=== PATIENT | male | born 1950 | race Caucasian/White ===

== ENCOUNTER 2023-12-11 08:38 | Outpatient (CLI) | payer MEDICARE, OTHER, SELFPAY | END 2023-12-11 08:39 | disposition home or self-care (01) | PROVIDERS: PCP Family Medicine; Visit Provider Family Medicine | DX: R63.4 Abnormal weight loss (principal); E78.2 Mixed hyperlipidemia | CPT/HCPCS: 80053; 80061; 84443 ==

== ENCOUNTER 2024-10-14 08:47 | Inpatient (IN) | payer MEDICARE, OTHER, SELFPAY ==
[2024-10-14] VITALS (13 sets, daily range): BP systolic 112–145; BP diastolic 62–87; PULSE 95–111; RESP 24–48; TEMP 36.1–37.3; O2SAT 68–92; BMI 17.4
--- OUTSIDE RECORDS SUMMARY | 2024-10-14 08:49 | XMS_ITS | Clinical Summary ---
Author Organization [facility] Address [place], [place] [address] Care Team Providers Care Health Records Technology Teacher Name Role Phone Pcp, No Primary Care Provider Unavailabl e Allergies No known active allergies Medications colestipol (COLESTID) 1 gram tabletIndicatio ns:Diarrhea, unspecified type Take 1 tablet by mouth once daily. 30 tablet 06/24/2017 10:57 AM CDT 7 Active oxyCODONE-aceta minophen, 5-325 mg, (PERCOCET) 5-325 mg per tabletIndicatio ns:Choledocholi thiasis Take 1-2 tablets by mouth every 6 hours if needed for Pain Max acetaminophen dose: 4000mg in 24 hrs. 10 tablet 06/24/2017 12:25 PM CDT 7 Active Active Problems Problem Noted Date Diagnosed Date RUQ abdominal pain 06/23/2017 S/P cholecystectomy 06/23/2017 Elevated liver function tests 06/23/2017 Suspected Choledocholithiasis 06/23/2017 Family History Medical History Relation Name Comments Heart failure Father Stroke Father Heart Disease Mother Relation Name Status Comments Father Mother Social History Tobacco Use Types Packs/Day Years Used Date Smoking Tobacco: Every Day Cigarettes Smokeless Tobacco: Never Tobacco Cessation:Ready to Q uit: No Alcohol Use Standard Drinks/Week Comments No 0 (1 standard drink = 0.6 oz pur e alcohol) Sex and Gender Information Value Date Recorded Sex Assigned at Not on file Legal Sex Male 6:51 PM [employer]ENS[employer] Gender Identity Not on file Sexual Orientation Not on file Obstetrics History Last Filed Vital Signs Vital Sign Reading Time Taken Comments Blood Pressure 139/70 06/24/2017 8:00 AM CDT Pulse 75 06/24/2017 8:00 AM CDT Temperature 37 C (98.6 F) 06/24/2017 8:00 AM CDT Respiratory Rate 16 06/24/2017 8:00 AM CDT Oxygen Saturation 95% 06/24/2017 8:00 AM CDT Inhaled Oxygen Concentration - - Weight - - Height - - Body Mass Index - - Plan of Treatment Not on file Insurance MEDICARE PART A HB ONLY Member Subscriber Plan / Payer (Ef fective 2016-Present) Name:Young Mcleod Member ID:[id number] Relation to Subscriber:Self Name:Young Mcleod Shira Subscriber ID:[id number] Payer ID:Not on file Group ID:Not on file Type:Not on file Address: ATTN: CLAIMS [address] MEDICARE [place] ONLY MEDICARE PART B [place] ONLY Member Subscriber Plan / Payer (Ef fective 2016-Present) Name:Young Mcleod Member ID:[id number] Relation to Subscriber:Self Name:Young Mcleod Shira Subscriber ID:[id number] Payer ID:Not on file Group ID:Not on file Type:Not on file Address: ATTN: CLAIMS [address] Advance Directives * Full Code (Latest Code Status on File) Date Activated Date Inactivated Comments 06/23/2017 3:45 AM 06/24/2017 4:04 PM Question Answer Comments Code Status Discussion: Discussed Care Teams Health Records Technology Teacher Relationship Specialty Start Date End Date Pcp, No . PCP - General 06/23/17
--- OUTSIDE RECORDS SUMMARY | 2024-10-14 08:49 | XMS_ITS | Continuity of Care Document ---
Author Name [email or web address] Address Unknown Organization Unknown Address Unknown Procedures FILTER APPLIED:Only known Procedures with Onset Date within the last 5 years Procedure Date Procedure Provider Additional Inform ation Status COMPREHEN METABOLIC PANEL (57216) Completed ASSAY THYROID STIM HORMONE (63107) Completed LIPID PANEL (72202) Comp leted Encounters FILTER APPLIED:Only known Encounters with Admission Date within the last 5 years Encounter Location Admission Discharge Billing Code [facility] Tapan Moran
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
--- NOTE | 2024-10-14 09:34 | CRLHL7_ITS ---
For Patients: As a result of the Century Cures Act, medical imaging exams and procedure reports are released immediately into your electronic medical record. You may view this report before your referring provider. If you have questions, please contact your health care provider. INDICATION: Weight loss. COPD. SOB. Rule out pulmonary embolism. TECHNIQUE: Volumetric helical scanning of the thorax was performed during infusion of 95 cc of Isovue 370 contrast material IV, timing optimized for pulmonary arterial opacification. Coronal and sagittal reconstructions were obtained. COMPARISON: None FINDINGS: The images are of acceptable quality and demonstrate uniform vascular enhancement within the pulmonary arteries. No pulmonary arterial filling defect is identified. The heart size is normal. Calcified coronary arterial plaque is demonstrated. Panlobular emphysema is demonstrated. Infiltrates are demonstrated in the left lower lobe and right middle lobe. Scattered nodules and tree-in-bud opacities are demonstrated. Mild bronchial wall thickening is noted along with inspissated mucus in a number of lung base bronchi. A small left pleural effusion is noted. There is no mediastinal or hilar adenopathy. Images of the upper abdomen demonstrate postop changes of cholecystectomy. IMPRESSION: 1. Negative for pulmonary embolism. 2. Panlobular emphysema, infiltrates in the left lower lobe and right middle lobe, scattered tiny nodules and tree-in-bud opacities. 3. Mild bronchial wall thickening as well as inspissated mucus in a number of lung bases bronchi. 4. Small left pleural effusion. Please note that all CT scans at this facility use dose modulation, iterative reconstruction, and/or weight-based dosing when appropriate to reduce radiation dose to as low as reasonably achievable. Dictated by Servando Garcia MD @ 10/14/2024 11:28:26 AM (Electronically Signed)
[2024-10-14 09:45] LABS: PCR FLU A POSITIVE PCR FLU A (Negative); PCR FLU B Negative PCR FLU B (Negative); PCR RSV Negative PCR RSV (Negative); SARS PCR* Negative SARS-CoV-2 (Negative)
[2024-10-14 09:49] LABS: HCO3 VBG 44 mmol/L (21-28); PO2 VBG 35.5 mmHG (25-47); pH VBG 7.341 (7.32-7.43)
[2024-10-14] MEDS: 0.9 % SODIUM CHLORIDE 500 ML 500 ML IV (09:49)
[2024-10-14 09:52] LABS: PCO2 VBG 81 mmHG (40-50)
[2024-10-14 09:53] LABS: Basophils Absolute Auto 0.01 K/uL (0.00-0.30); Basophils Percent Auto 0.1 % (0.0-3.0); Eosinophils Absolute Auto 0.01 K/uL (0.00-0.50); Eosinophils Percent Auto 0.1 % (0.0-7.0); Hematocrit 46.2 % (37.0-53.0); Immature Granulocytes Abs Auto 0.06 K/uL (0.00-0.30); Immature Granulocytes Pct Auto 0.7 %; Lymphocytes Percent Auto 3.3 % (20-44); Mean Corpuscular HGB Conc 30 gm/dL (32-36); Mean Corpuscular Hemoglobin 28 pg (26-34); Mean Corpuscular Volume 92 fL (80-100); Monocytes Percent Auto 8.6 % (0.0-11.0); Neutrophils Percent Auto 87.2 % (42.0-72.0); Platelet Count* 316 K/uL (140-440); RDW Coefficient of Variation % 13.1 % (11.5-15.5); Red Blood Count 5.03 m/uL (4.30-5.90); White Blood Count* 8.92 K/uL (4.50-11.00)
[2024-10-14 09:56] LABS: Slide Review Reflex No
[2024-10-14 10:10] LABS: Albumin* 3.4 g/dL (3.3-5.0); Chloride* 86 mmol/L (96-114)
[2024-10-14 10:11] LABS: Potassium* 4.6 mmol/L (3.6-5.1); Sodium* 132 mmol/L (135-149)
[2024-10-14 10:13] LABS: Creatinine* 0.6 mg/dL (0.5-1.5); Est. Creatinine Clearance* 47.55; Estimated Glomerular Filt Rate 103 ml/min
[2024-10-14 10:14] LABS: Alanine Aminotransferase* 25 U/L (4-50); Alkaline Phosphatase* 71 U/L (40-150); Aspartate Amino Transferase* 22 U/L (12-35); Bilirubin Direct* 0.3 mg/dL (0.0-0.5); Bilirubin Total* 0.4 mg/dL (0.1-1.5); Blood Urea Nitrogen* 14 mg/dL (7-30); Calcium* 8.5 mg/dL (8.4-10.6); Glucose* 103 mg/dL (60-115); Total Protein* 6.7 g/dL (6.0-8.3)
[2024-10-14 10:16] LABS: INR 1.03 (0.91-1.10); Prothrombin Time 14.2 Seconds
[2024-10-14 10:17] LABS: Partial Thromboplastin Time* 31 Seconds (23-33)
[2024-10-14 10:22] LABS: Anion Gap 5 mEq/L (7-15); Carbon Dioxide* 41 mmol/L (20-32)
[2024-10-14 11:34] LABS: NT Pro B Type NatriureticPept* 3700 pg/mL
[2024-10-14] MEDS: OSELTAMIVIR PHOSPHATE 75 MG CAPSULE PO ×2 (14:48→21:01)
[2024-10-14] MEDS: cefTRIAXone 1 GM in 0.9 % SODIUM CHLORIDE Mini-bag 100 ML IVPB (14:48)
[2024-10-14] MEDS: AZITHROMYCIN 250 MG TABLET 500 MG PO (14:49)
[2024-10-14] MEDS: predniSONE 10 MG TABLET 50 MG PO (14:49)
[2024-10-14 15:54] LABS: HCO3 VBG 41 mmol/L (21-28); PO2 VBG 59.4 mmHG (25-47); pH VBG 7.318 (7.32-7.43)
[2024-10-14 16:16] LABS: PCO2 VBG 79 mmHG (40-50)
[2024-10-14] MEDS: IPRAT-ALBUT 0.5-2.5 MG/3 ML NEB 1 NEB IH ×2 (17:36→21:01)
--- NOTE | 2024-10-14 17:53 | P.IMHP_ITS ---
Hospitalist- H&P: HPI History of Present Illness Date Seen: 10/14/24 Chief complaint: Low O2 sats - from clinic Narrative: Young Mcleod is a 73 year old male with COPD admitted to the hospital with 5 day history of illness. Patient is a poor historian but his gives details of recent illness. About 5 days ago he began having worsening shortness of breath and cough. His breathing has been getting worse and he has now been confused and it is sometimes quite agitated. He has been sleeping in a recliner because he can not lie supine. He tolerates no activities due to dyspnea. He is known to have COPD from smoking. Stop smoking recently but acknowledges occasionally taking cigarettes from his to smoke. Previously was smoking marijuana but no longer. He uses DuoNebs 4 times a day and p.r.n. albuterol rescue inhaler. He no longer has maintenance therapy for his COPD. His had influenza a couple weeks ago. She got it from there [employer]. Review of Systems Narrative: Patient reports he is otherwise feeling well except for his respiratory symptoms. His notes that his appetite has been poor in the last few days as well. [facility] Medical History (Updated 10/14/24 @ 18:06 by Servando Hdez MD) Pneumonia ?J18.9 - Pneumonia, unspecified organism (ICD-10) Acute on chronic respiratory failure with hypoxia and hypercapnia ?J96.21 - Acute and chronic respiratory failure with hypoxia (ICD-10) ?J96.22 - Acute and chronic respiratory failure with hypercapnia (ICD-10) Tobacco use ?Z72.0 - Tobacco use (ICD-10) Hyperlipidemia ?E78.5 - Hyperlipidemia, unspecified (ICD-10) Anxiety ?F41.9 - Anxiety disorder, unspecified (ICD-10) Abnormal weight loss ?R63.4 - Abnormal weight loss (ICD-10) COPD (chronic obstructive pulmonary disease) ?J44.9 - Chronic obstructive pulmonary disease, unspecified (ICD-10) Surgical History History of laparoscopic cholecystectomy ?Z90.49 - Acquired absence of other specified parts of digestive tract (ICD- 10) Social History (Updated 10/14/24 @ 18:00 by Servando Hdez MD) Narrative: He lives with his , Cassandra, she is healthcare power of commonwealth attorney. Code status is DNR DNI. Recently stop smoking tobacco and marijuana though reports occasionally taking his cigarettes to smoke. Does not drink alcohol. What is your current living situation?: I presently have a place to live Problems where you live: no known problems Problems where you live details: none In the past 12 months, utilities in danger of being shut off: no In past 12 months, lack of transportation kept you from medical appts, meetings, work, or getting things needed for daily living: no In the past 12 mos, have been you worried that your food would run out before you had money to buy more?: never true In the past 12 mos, the food you bought just didn't last and you didn't have money to buy more?: never true Smoking Status: Former smoker Non-prescribed substance use: denies use How often does anyone, including family, friends and others, physically hurt you : never How often does anyone, including family, friends and others, insult or talk down to you: never How often does anyone, including family, friends and others, threaten you with harm: never How often does anyone, including family, friends and others, scream or curse at you: never service: No Meds Home Medications and Allergies Allergies Allergy/AdvReac Type Severity Reaction Status Date / Time No Known Drug Allergies Allergy Unverified 10/14/24 10:51 Exam Narrative: Exam Narrative: He is alert and appears in moderate respiratory distress with increased rate and work of breathing. His responses to questions is relatively slow suggesting some mental slowing. No obvious confusion or disorientation is present. Head is without trauma. Oropharynx with dry mucous membranes. Neck is supple without mass or adenopathy. Respirations with marked decreased breath sounds. Prolonged expiration with an I to E ratio of 1-3. Cardiovascular: S1, S2, regular tachycardia. Abdomen is soft without tenderness or mass. Extremities without edema. Extremities are cool to touch. Const: Vital Signs, click to edit/add: Vital Signs - 24 hr 10/14/24 09:04 10/14/24 13:12 10/14/24 13:12 Temperature 98.7 F 98.8 F Pulse Rate [Left P ulse Oximeter] 103 H Pulse Rate [Pulse Oximeter] 111 H Respiratory Rate 48 H 40 H 40 H Blood Pressure [Ri ght Arm] 129/76 Blood Pressure [Ri ght Upper Arm] 145/81 H Pulse Oximetry 68 L 87 L 87 L Oxygen Delivery Me thod Room Air Nasal Cannula Nasal Cannula Oxygen Flow Rate 2.5 2.5 Fraction of Inspir ed Oxygen 10/14/24 13:30 10/14/24 14:00 10/14/24 14:34 Temperature Pulse Rate [Left P ulse Oximeter] Pulse Rate [Pulse Oximeter] Respiratory Rate Blood Pressure [Ri ght Arm] Blood Pressure [Ri ght Upper Arm] Pulse Oximetry 83 L 92 88 Oxygen Delivery Me thod Nasal Cannula Oxygen Flow Rate 2 4 Fraction of Inspir ed Oxygen 10/14/24 14:36 10/14/24 14:56 10/14/24 14:56 Temperature Pulse Rate [Left P ulse Oximeter] Pulse Rate [Pulse Oximeter] Respiratory Rate 26 H Blood Pressure [Ri ght Arm] Blood Pressure [Ri ght Upper Arm] Pulse Oximetry 88 83 L 85 L Oxygen Delivery Me thod Nasal Cannula Nasal Cannula Nasal Cannula Oxygen Flow Rate 2 2 3 Fraction of Inspir ed Oxygen 10/14/24 15:00 10/14/24 17:25 Temperature 97 F L Pulse Rate [Left P ulse Oximeter] 106 H Pulse Rate [Pulse Oximeter] Respiratory Rate 26 H Blood Pressure [Ri ght Arm] 117/87 Blood Pressure [Ri ght Upper Arm] Pulse Oximetry 86 L Oxygen Delivery Me thod Nasal Cannula Oxygen Flow Rate 3 25 Fraction of Inspir ed Oxygen 35 Documenting provider has reviewed patient's vital signs: yes Hospitalist - H&P: Result Labs Labs: Short CBC 10/14/24 Range/Units 09:33 WBC 8.92 (4.50-11.00) K/uL Hgb 14.0 (13.5-17.5) gm/dL Hct 46.2 (37.0-53.0) % Plt Count 316 (140-440) K/uL BMP 10/14/24 09:33 Sodium 132 L Potassium 4.6 Chloride 86 L Carbon Dioxide 41 H* BUN 14 Creatinine 0.6 Glucose 103 Calcium 8.5 Liver Function 10/14/24 Range/Units 09:33 Total Bilirubin 0.4 (0.1-1.5) mg/dL Direct Bilirubin 0.3 (0.0-0.5) mg/dL AST 22 (12-35) U/L ALT 25 (4-50) U/L Alkaline Phosphatase 71 (40-150) U/L Albumin 3.4 (3.3-5.0) g/dL Imaging CT scan - chest: Radiologist's impression: INDICATION: Weight loss. COPD. SOB. Rule out pulmonary embolism. TECHNIQUE: Volumetric helical scanning of the thorax was performed during infusion of 95 cc of Isovue 370 contrast material IV, timing optimized for pulmonary arterial opacification. Coronal and sagittal reconstructions were obtained. COMPARISON: None FINDINGS: The images are of acceptable quality and demonstrate uniform vascular enhancement within the pulmonary arteries. No pulmonary arterial filling defect is identified. The heart size is normal. Calcified coronary arterial plaque is demonstrated. Panlobular emphysema is demonstrated. Infiltrates are demonstrated in the left lower lobe and right middle lobe. Scattered nodules and tree-in-bud opacities are demonstrated. Mild bronchial wall thickening is noted along with inspissated mucus in a number of lung base bronchi. A small left pleural effusion is noted. There is no mediastinal or hilar adenopathy. Images of the upper abdomen demonstrate postop changes of cholecystectomy. IMPRESSION: 1. Negative for pulmonary embolism. 2. Panlobular emphysema, infiltrates in the left lower lobe and right middle lobe, scattered tiny nodules and tree-in-bud opacities. 3. Mild bronchial wall thickening as well as inspissated mucus in a number of lung bases bronchi. Assessment and Plan Assessment and plan (1) Acute on chronic respiratory failure with hypoxia and hypercapnia: Problem comment: Due to COPD exacerbation plus influenza. Systemic steroids, inhaled bronchodilators, antibiotics. Cautious use of oxygen due to CO2 retention. May need BiPAP Status: Acute (2) Influenza A: Problem comment: Tamiflu and monitor Status: Acute (3) Pneumonia: Problem comment: Tamiflu and also treatment for community-acquired pneumonia. Status: Acute (4) Abnormal weight loss: Problem comment: Patient has a BMI of 17.4 with a 4.5 kg weight loss in 10 months from 12/11/2023 to 10/14/2024. Nutritional consult. Optimize COPD treatment Status: Acute Plan 73-year-old male admitted to the hospital with hypercarbic and hypoxic respiratory failure due to COPD exacerbation and influenza. Also possible community-acquired pneumonia. Plan discussed with patient and his . Outlined above. Total time spent today is 75 minutes in reviewing past medical history, discussing with other providers and patient and ongoing management of respiratory failure.
[2024-10-14] MEDS: ENOXAPARIN 40 MG/0.4 ML INJ SUBCUT (21:01)
[2024-10-14] MEDS: ACETAMINOPHEN 325 MG TABLET 650 MG PO (21:02)
[2024-10-14] MEDS: SODIUM CHLORIDE 0.9 % (FLUSH) 10 ML SYRINGE 5 ML IVF (21:02)
[2024-10-14] MEDS: MELATONIN 3 MG TABLET PO (21:03)
[2024-10-14 21:43] LABS: HCO3 VBG 44 mmol/L (21-28); PO2 VBG 43.5 mmHG (25-47); pH VBG 7.346 (7.32-7.43)
[2024-10-14 21:45] LABS: PCO2 VBG 80 mmHG (40-50)
--- NOTE | 2024-10-14 23:22 | PC.NURSE ---
SHIFT NOTE: Pt fatigued, growing more confused as the night goes on, aware, oriented to person and place, reoriented pt as needed. Initially on 2L O2 PNC, transitioned to HFNC 25/35 with O2 sats in the high 80's to low 90's. Transitioned to BiPAP at 2230 per doctor order related to high CO2, BiPAP on, ABG ordered. Pt incontinent of urine, babar care provided and brief on. Tele sinus tach. Pt up to the BR SBA initially and was extremely short of breath, used BSC the second time and still very SOB. Pt denies pain, chest pain and N/V.
[2024-10-15] VITALS (29 sets, daily range): BP systolic 93–125; BP diastolic 59–86; PULSE 10–113; RESP 18–34; TEMP 36.2–37.4; O2SAT 72–94
[2024-10-15 00:06] LABS: Base Excess ABG 12.3 mmol/L (-3.0-3.0); HCO3 ABG 42 mmol/L (21-28); Oxygen Saturation ABG 93 % (92-100); TCO2 ABG 39 mmol/l (21-30); pH ABG 7.32 (7.35-7.45)
[2024-10-15 00:08] LABS: ABG PCO2 83 mmHG (35-45)
[2024-10-15 02:19] LABS: HCO3 VBG 43 mmol/L (21-28); pH VBG 7.353 (7.32-7.43)
[2024-10-15 02:24] LABS: PCO2 VBG 78 mmHG (40-50)
[2024-10-15] MEDS: IPRAT-ALBUT 0.5-2.5 MG/3 ML NEB 1 NEB IH ×4 (04:18→20:50)
[2024-10-15 04:49] LABS: HCO3 VBG 45 mmol/L (21-28); PO2 VBG 35.4 mmHG (25-47); pH VBG 7.317 (7.32-7.43)
[2024-10-15 05:59] LABS: PCO2 VBG 89 mmHG (40-50)
--- NOTE | 2024-10-15 06:19 | PC.NURSE ---
shift note: Dr. Hdz contacted via phone with critical PCO2 89 from 1129 VBG. Verbal order to place Bipap IPAP setting to 16 and EPAP setting to 5. order to keep sats >88.
[2024-10-15 07:16] LABS: HCO3 VBG 46 mmol/L (21-28); PO2 VBG 33.4 mmHG (25-47); pH VBG 7.384 (7.32-7.43)
[2024-10-15 07:19] LABS: PCO2 VBG 77 mmHG (40-50)
--- NOTE | 2024-10-15 07:41 | PC.NURSE ---
shift note: Dr. Hdez notified of 07 VBG PCO2=77. Order to keep settings on bipap unchanged from ipap 16 epap 5 and O2 27%.
[2024-10-15] MEDS: predniSONE 10 MG TABLET 50 MG PO (08:37)
[2024-10-15] MEDS: OSELTAMIVIR PHOSPHATE 75 MG CAPSULE PO ×2 (08:37→20:50)
[2024-10-15] MEDS: SODIUM CHLORIDE 0.9 % (FLUSH) 10 ML SYRINGE 5 ML IVF ×2 (08:38→20:50)
--- NOTE | 2024-10-15 09:23 | NUTR.NU ---
RDN with MD consult for weight loss. Patient admitted for influenza A+, respiratory failure and pneumonia. Per weight record, patient has lost about 14 lbs within 9 months, this is not significant weight loss at 11.5%. Per IDT meeting today, patient asking about Hospice/comfort cares. MD to have goals of care discussion with patient today. Not appropriate for visit today. RDN will continue to monitor and follow-up prn.
--- NOTE | 2024-10-15 10:45 | RESP.RT ---
Pt in bed on BIPAP this AM. attempting to optimize settings for him for adeguate oxygenation and ventilation. Do not want to over oxygenate him, based on serial VBGs. BBS improved vs yesterday in ED. Diminished in bases, prolonged expiratory phase. Will try off of BIPAP through out the day. Tolerate SPO2 in low to mid 80's as acceptable. Do not get saturations over 90%. If saturations are below 80%. place pt back on BIPAP. Nutrition would be helpful with small frequent meals or snacks. Continue with nebs. May be helpful to send home with nebs vs inhaler.
[2024-10-15] MEDS: cefTRIAXone 1 GM in 0.9 % SODIUM CHLORIDE Mini-bag 100 ML IVPB (14:11)
[2024-10-15] MEDS: AZITHROMYCIN 250 MG TABLET 500 MG PO (14:11)
--- NOTE | 2024-10-15 15:25 | P.IMPN_ITS ---
Progress Note: A&P Assessment and plan (1) Acute on chronic respiratory failure with hypoxia and hypercapnia: Problem details: Due to COPD exacerbation plus influenza. Systemic steroids, inhaled bronchodilators, antibiotics. Cautious use of oxygen due to CO2 retention. BiPAP as needed. End-tidal CO2 monitoring to avoid hypercarbia Status: Acute (2) Influenza A: Problem details: Tamiflu and monitor Status: Acute (3) Pneumonia: Problem details: Tamiflu and also treatment for community-acquired pneumonia. Status: Acute (4) Abnormal weight loss: Problem details: Patient has a BMI of 17.4 with a 4.5 kg weight loss in 10 months from 12/11/2023 to 10/14/2024. Nutritional consult. Optimize COPD treatment Status: Acute (5) Encephalopathy: Problem details: Encephalopathy manifested as acute confusion and some behavior change by his and noted during his hospital admission is now much better. This is likely metabolic encephalopathy due to hypercarbia primarily Status: Acute Plan Continue in hospital for treatment of respiratory failure due to COPD and influenza. For now continue antibiotics as well pending culture and clinical course. Time Spent With Patient Total time spent: Total time spent today is 50 minutes in evaluation and management of respiratory failure and discussing with patient and and other providers management of respiratory failure Subjective Date Seen: 10/15/24 Interval history: Young Mcleod is a 73 year old male with COPD admitted to the hospital with 5 day history of illness. Patient is a poor historian but his gives details of recent illness. About 5 days ago he began having worsening shortness of breath and cough. His breathing has been getting worse and he has now been confused and it is sometimes quite agitated. He has been sleeping in a recliner because he can not lie supine. He tolerates no activities due to dyspnea. He is known to have COPD from smoking. Stop smoking recently but acknowledges occasionally taking cigarettes from his to smoke. Previously was smoking marijuana but no longer. He uses DuoNebs 4 times a day and p.r.n. albuterol rescue inhaler. He no longer has maintenance therapy for his COPD. His had influenza a couple weeks ago. She got it from there [employer]. 10/15/2024: Patient continued to have hypoxia and hypercarbia. He was placed on BiPAP overnight. He did well with this though continues to be hypoxic and hypercarbic this morning. He reports feeling better overall however. Reaffirmed that he does not want intubation. During the day today he was able to transition to oxygen at 2 L per nasal cannula for periods of time. Exam Narrative: Exam Narrative: He is alert and oriented to his circumstances. Mildly increased rate and work of breathing on oxygen per nasal cannula. Respirations with marked diminished breath sounds but improved since yesterday. Severe prolonged expiratory phase yesterday is much improved as well. Cardiovascular: S1, S2, regular tachycardia. Abdomen: Bowel sounds active. Abdomen is soft without tenderness or mass. Extremities without edema. Const: Vital Signs, click to edit/add: Vital Signs - 24 hr 10/14/24 17:25 10/14/24 19:00 10/14/24 19:09 Temperature 99.1 F Pulse Rate Pulse Rate [Left P ulse Oximeter] 106 H Respiratory Rate 24 Blood Pressure Blood Pressure [Ri ght Arm] 112/62 Pulse Oximetry 90 Oxygen Delivery Me thod High Flow Nasal Ca nnula Oxygen Flow Rate 25 25 Fraction of Inspir ed Oxygen 35 35 35 10/14/24 21:00 10/14/24 23:00 10/14/24 23:00 Temperature Pulse Rate 95 Pulse Rate [Left P ulse Oximeter] Respiratory Rate 28 H Blood Pressure Blood Pressure [Ri ght Arm] Pulse Oximetry 90 Oxygen Delivery Me thod BiPAP Oxygen Flow Rate Fraction of Inspir ed Oxygen 35 10/14/24 23:43 10/15/24 01:49 10/15/24 02:05 Temperature 98.7 F 97.5 F L Pulse Rate Pulse Rate [Left P ulse Oximeter] 98 93 Respiratory Rate 28 H 24 Blood Pressure Blood Pressure [Ri ght Arm] 125/73 115/67 Pulse Oximetry 90 88 91 Oxygen Delivery Me thod BiPAP BiPAP Oxygen Flow Rate Fraction of Inspir ed Oxygen 10/15/24 04:00 10/15/24 06:00 10/15/24 07:00 Temperature 97.4 F L 97.3 F L Pulse Rate 94 Pulse Rate [Left P ulse Oximeter] 102 H 84 Respiratory Rate 32 H 31 H Blood Pressure Blood Pressure [Ri ght Arm] 117/86 117/86 Pulse Oximetry 87 L 86 L Oxygen Delivery Me thod BiPAP BiPAP Oxygen Flow Rate Fraction of Inspir ed Oxygen 10/15/24 07:25 10/15/24 07:27 10/15/24 07:38 Temperature 98.1 F Pulse Rate Pulse Rate [Left P ulse Oximeter] 90 Respiratory Rate 21 21 21 Blood Pressure Blood Pressure [Ri ght Arm] 108/67 Pulse Oximetry 86 L 86 L Oxygen Delivery Me thod BiPAP BiPAP Oxygen Flow Rate 27 27 Fraction of Inspir ed Oxygen 27 27 10/15/24 09:16 10/15/24 09:28 10/15/24 09:28 Temperature 97.2 F L 207.0 F H Pulse Rate 97 100 100 Pulse Rate [Left P ulse Oximeter] Respiratory Rate 20 Blood Pressure 93/67 93/67 Blood Pressure [Ri ght Arm] Pulse Oximetry 93 94 94 Oxygen Delivery Me thod Oxygen Flow Rate Fraction of Inspir ed Oxygen 10/15/24 09:29 10/15/24 09:30 10/15/24 09:30 Temperature 97.2 F L 207.0 F H Pulse Rate 97 100 97 Pulse Rate [Left P ulse Oximeter] Respiratory Rate 20 Blood Pressure 93/67 Blood Pressure [Ri ght Arm] Pulse Oximetry 93 94 93 Oxygen Delivery Me thod BiPAP Oxygen Flow Rate 30 Fraction of Inspir ed Oxygen 30 10/15/24 10:00 10/15/24 10:03 10/15/24 10:30 Temperature 97.5 F L Pulse Rate 104 H 105 H 103 H Pulse Rate [Left P ulse Oximeter] Respiratory Rate 20 Blood Pressure 115/66 Blood Pressure [Ri ght Arm] Pulse Oximetry 89 84 L 72 L Oxygen Delivery Me thod Nasal Cannula Oxygen Flow Rate 2 Fraction of Inspir ed Oxygen 10/15/24 10:39 10/15/24 10:49 10/15/24 11:19 Temperature Pulse Rate 109 H Pulse Rate [Left P ulse Oximeter] Respiratory Rate 20 Blood Pressure Blood Pressure [Ri ght Arm] Pulse Oximetry 85 L Oxygen Delivery Me thod Nasal Cannula Oxygen Flow Rate 2 Fraction of Inspir ed Oxygen 25 10/15/24 11:36 10/15/24 12:03 10/15/24 14:09 Temperature 98.0 F 98.1 F Pulse Rate 110 H 112 H Pulse Rate [Left P ulse Oximeter] 10 L Respiratory Rate 23 22 Blood Pressure 111/59 L 108/69 Blood Pressure [Ri ght Arm] Pulse Oximetry 87 L 88 Oxygen Delivery Me thod Nasal Cannula Nasal Cannula Oxygen Flow Rate 2 2 Fraction of Inspir ed Oxygen 10/15/24 14:45 10/15/24 14:45 10/15/24 14:45 Temperature 97.9 F Pulse Rate Pulse Rate [Left P ulse Oximeter] 111 H 113 H Respiratory Rate 22 22 Blood Pressure Blood Pressure [Ri ght Arm] 125/68 Pulse Oximetry 84 L 84 L Oxygen Delivery Me thod Nasal Cannula Nasal Cannula Oxygen Flow Rate 2 2 Fraction of Inspir ed Oxygen 10/15/24 15:12 Temperature Pulse Rate 113 H Pulse Rate [Left P ulse Oximeter] Respiratory Rate Blood Pressure Blood Pressure [Ri ght Arm] Pulse Oximetry Oxygen Delivery Me thod Oxygen Flow Rate Fraction of Inspir ed Oxygen Documenting provider has reviewed patient's vital signs: yes Labs Labs: Laboratory Results - last 24 hr 10/14/24 10/14/24 10/15/24 15:44 20:54 00:05 ABG pH 7.32 L ABG pCO2 83 H* ABG pO2 71.0 L ABG HCO3 42 H ABG Total CO2 39 H ABG O2 Saturation 93 ABG Base Excess 12.3 H VBG pH 7.318 L 7.346 VBG pCO2 79 H* 80 H* VBG pO2 59.4 H 43.5 VBG HCO3 41 H 44 H 10/15/24 10/15/24 10/15/24 02:15 04:45 07:11 ABG pH ABG pCO2 ABG pO2 ABG HCO3 ABG Total CO2 ABG O2 Saturation ABG Base Excess VBG pH 7.353 7.317 L 7.384 VBG pCO2 78 H* 89 H* 77 H* VBG pO2 64.0 H 35.4 33.4 VBG HCO3 43 H 45 H 46 H
--- NOTE | 2024-10-15 19:11 | PC.NURSE ---
Pt alert to self and birthdate. Upon arrival to shift Pt was on Bipap with the following settings IPAP 16, EPAP 5, Rate 10, Rise 2 and FiO2 27 Pt saturations were low 90?s on these settings. Around 0815 RT adjusted Pt?s settings as follows IPAP 14, EPAP 5, Rate 10, Rise 2 and FiO2 30 after a few minutes Pt?s saturations were still high 80?s to low 90?s. Bipap settings adjusted again as follows IPAP 14, EPAP 5, Rate 10, Rise 2 and FiO2 27 Pt tolerating well and oxygen saturations high 80?s to low 90?s. Pt?s oxygenation goal is 85%; Per RT 82-89% is ideal. Pt taken off Bipap for breakfast and placed on 2 Liters nasal cannula Pt maintained saturations 84-86%. Per MD Pt okayed to stay on 2 Liters nasal cannula as long as Pt is tolerating, and saturations remain in the goal range. Pt has tolerated 2 Liters nasal cannula most of shift maintaining saturations 82-89%, Pt did have higher saturations of 91-93% and weaned down to 1 Liter and tolerated 86-88%. Pt tolerated eating well during the shift. Pt has been tachycardic throughout most of shift, this was reported to MD who did not want to initiate any intervention at this time. Pt was changed to floor status shortly before 1500. Pt up with SBA with walker and gait belt. Pt had no complaints of pain.?
--- NOTE | 2024-10-15 19:33 | PC.NURSE ---
Pt up to the chair x 1 this shift. Pt walked to BR x 2 this shift.
[2024-10-15] MEDS: ENOXAPARIN 40 MG/0.4 ML INJ SUBCUT (20:50)
[2024-10-15 21:29] LABS: HCO3 VBG 44 mmol/L (21-28); PO2 VBG 34.7 mmHG (25-47); pH VBG 7.422 (7.32-7.43)
[2024-10-15 21:52] LABS: PCO2 VBG 68 mmHG (40-50)
[2024-10-16] VITALS (14 sets, daily range): BP systolic 116–138; BP diastolic 66–92; PULSE 92–108; RESP 22–38; TEMP 36.2–37.4; O2SAT 68–92; BMI 17.4
[2024-10-16] MEDS: ALBUTEROL SULFATE 2.5 MG/3 ML VIAL.NEB NEB (04:36)
[2024-10-16] MEDS: ACETAMINOPHEN 325 MG TABLET 650 MG PO (04:38)
--- NOTE | 2024-10-16 06:47 | PC.NURSE ---
Shift note 23-07: Pt intermittently angry and delirious from 2300 until around 0200, intermittently tearing off his oxygen, pulse oximetry, and tele, unable to redirect pt, pt insulting technical report writer and swatting at other staff that tried to help. At 0200 pt was agreeable to wear BiPAP, on until 0350 when the patient requested a break. Pt was then awake on 1L O2 from 0350 until around 0530, ate some peanut butter toast and drank some orange juice and was very friendly and chatty. PRN albuterol given for wheezing with relief. Pt fell asleep about 0530 and woke up around 0600 and began tearing off his tele, pulse ox, oxygen and clothes again. Patient up in the recliner currently, 1L O2 via NC, refusing lab draw and once again in a bad mood.
[2024-10-16] MEDS: predniSONE 10 MG TABLET 50 MG PO (08:26)
[2024-10-16] MEDS: OSELTAMIVIR PHOSPHATE 75 MG CAPSULE PO ×2 (08:26→20:36)
[2024-10-16] MEDS: SODIUM CHLORIDE 0.9 % (FLUSH) 10 ML SYRINGE 5 ML IVF ×2 (08:26→20:36)
[2024-10-16] MEDS: IPRAT-ALBUT 0.5-2.5 MG/3 ML NEB 1 NEB IH ×4 (08:27→20:36)
[2024-10-16 08:56] LABS: HCO3 VBG 47 mmol/L (21-28); PO2 VBG < 30.1 mmHG (25-47); pH VBG 7.358 (7.32-7.43)
[2024-10-16 09:01] LABS: PCO2 VBG 84 mmHG (40-50)
[2024-10-16] MEDS: AZITHROMYCIN 250 MG TABLET 500 MG PO (14:34)
[2024-10-16] MEDS: cefTRIAXone 1 GM in 0.9 % SODIUM CHLORIDE Mini-bag 100 ML IVPB (14:34)
--- NOTE | 2024-10-16 16:41 | PM.IMPN1 ---
Progress Note: A&P Assessment and plan (1) Acute on chronic respiratory failure with hypoxia and hypercapnia: Problem details: Due to COPD exacerbation plus influenza. Systemic steroids, inhaled bronchodilators, antibiotics. Cautious use of oxygen due to CO2 retention. BiPAP as needed. End-tidal CO2 monitoring to avoid hypercarbia Status: Acute (2) Influenza A: Problem details: Tamiflu and monitor Status: Acute (3) Pneumonia: Problem details: Tamiflu and also treatment for community-acquired pneumonia. Status: Acute (4) Abnormal weight loss: Problem details: Patient has a BMI of 17.4 with a 4.5 kg weight loss in 10 months from 12/11/2023 to 10/14/2024. Nutritional consult. Optimize COPD treatment Status: Acute (5) Encephalopathy: Problem details: Encephalopathy manifested as acute confusion and some behavior change by his and noted during his hospital admission is now much better. This is likely metabolic encephalopathy due to hypercarbia primarily. Status: Acute Plan Continue in-hospital to optimize management of his hypoxic and hypercarbic respiratory failure. Continue to monitor and manage his delirium and hepatic encephalopathy there presumably secondary to his respiratory failure. Anticipate discharge to his home with his . Ongoing discussion about goals of care and palliative care. Time Spent With Patient Total time spent: Total time spent today is 40 minutes in coordination of care and discussing with patient other providers management of respiratory failure Subjective Date Seen: 10/16/24 Interval history: Young Mcleod is a 73 year old male with COPD admitted to the hospital with 5 day history of illness. Patient is a poor historian but his gives details of recent illness. About 5 days ago he began having worsening shortness of breath and cough. His breathing has been getting worse and he has now been confused and it is sometimes quite agitated. He has been sleeping in a recliner because he can not lie supine. He tolerates no activities due to dyspnea. He is known to have COPD from smoking. Stop smoking recently but acknowledges occasionally taking cigarettes from his to smoke. Previously was smoking marijuana but no longer. He uses DuoNebs 4 times a day and p.r.n. albuterol rescue inhaler. He no longer has maintenance therapy for his COPD. His had influenza a couple weeks ago. She got it from there [facility]. 10/15/2024: Patient continued to have hypoxia and hypercarbia. He was placed on BiPAP overnight. He did well with this though continues to be hypoxic and hypercarbic this morning. He reports feeling better overall however. Reaffirmed that he does not want intubation. During the day today he was able to transition to oxygen at 2 L per nasal cannula for periods of time. I indicated to the patient and his that he has fairly severe lung disease and is likely a candidate for hospice if he would like to take that approach to his care. 10/16/2024: Patient had some delirium overnight. Paranoid ideation. Refusing to wear BiPAP. That has resolved this morning. He is now on nasal cannula oxygen at 1 L with O2 sat of 90% and an end-tidal CO2 in the 40s. He reports otherwise feeling fine. Exam Narrative: Exam Narrative: He is alert and oriented to being in the hospital. He is pleasant and cooperative. Respirations are markedly diminished. He has prolonged expiratory phase but no wheezing. Cardiovascular: S1, S2, regular tachycardia. Abdomen is soft without tenderness. Const: Vital Signs, click to edit/add: Vital Signs - 24 hr 10/15/24 17:35 10/15/24 17:47 10/15/24 19:43 Temperature 98.6 F Pulse Rate Pulse Rate [Left P ulse Oximeter] 104 H Respiratory Rate 18 20 Blood Pressure [Le ft Arm] Blood Pressure [Ri ght Arm] 117/66 Pulse Oximetry 80 L 88 88 Oxygen Delivery Me thod Nasal Cannula Nasal Cannula Nasal Cannula Oxygen Flow Rate 1 2 1 Fraction of Inspir ed Oxygen 10/15/24 20:48 10/15/24 23:00 10/15/24 23:00 Temperature 99.0 F Pulse Rate Pulse Rate [Left P ulse Oximeter] 94 94 Respiratory Rate 18 18 18 Blood Pressure [Le ft Arm] Blood Pressure [Ri ght Arm] 108/63 Pulse Oximetry 86 L 90 Oxygen Delivery Me thod Nasal Cannula Nasal Cannula Oxygen Flow Rate 1 1 Fraction of Inspir ed Oxygen 10/15/24 23:00 10/15/24 23:00 10/16/24 01:00 Temperature 99.3 F Pulse Rate 100 Pulse Rate [Left P ulse Oximeter] 99 Respiratory Rate 20 Blood Pressure [Le ft Arm] Blood Pressure [Ri ght Arm] 120/79 Pulse Oximetry 90 84 L Oxygen Delivery Me thod Nasal Cannula Oxygen Flow Rate 1 Fraction of Inspir ed Oxygen 10/16/24 01:00 10/16/24 03:00 10/16/24 03:00 Temperature 99.1 F 99.2 F Pulse Rate Pulse Rate [Left P ulse Oximeter] 98 96 96 Respiratory Rate 24 22 22 Blood Pressure [Le ft Arm] Blood Pressure [Ri ght Arm] 116/92 H 130/70 Pulse Oximetry 84 L 86 L Oxygen Delivery Me thod Room Air Room Air Oxygen Flow Rate Fraction of Inspir ed Oxygen 10/16/24 04:38 10/16/24 04:39 10/16/24 05:00 Temperature 99.2 F 99.2 F Pulse Rate 97 Pulse Rate [Left P ulse Oximeter] 92 Respiratory Rate 22 Blood Pressure [Le ft Arm] Blood Pressure [Ri ght Arm] 138/72 Pulse Oximetry 84 L Oxygen Delivery Me thod Room Air Oxygen Flow Rate 1 Fraction of Inspir ed Oxygen 10/16/24 07:00 10/16/24 07:00 10/16/24 07:00 Temperature Pulse Rate 103 H Pulse Rate [Left P ulse Oximeter] 104 H Respiratory Rate 22 24 Blood Pressure [Le ft Arm] Blood Pressure [Ri ght Arm] Pulse Oximetry 86 L Oxygen Delivery Me thod Nasal Cannula Oxygen Flow Rate 2 Fraction of Inspir ed Oxygen 10/16/24 07:30 10/16/24 09:00 10/16/24 11:00 Temperature 98.4 F 98.3 F Pulse Rate Pulse Rate [Left P ulse Oximeter] 108 H 104 H 102 H Respiratory Rate 24 22 38 H Blood Pressure [Le ft Arm] Blood Pressure [Ri ght Arm] 133/78 133/75 124/66 Pulse Oximetry 86 L 91 68 L Oxygen Delivery Me thod Room Air Nasal Cannula Room Air Oxygen Flow Rate 1.5 1 Fraction of Inspir ed Oxygen 10/16/24 11:03 10/16/24 15:00 10/16/24 15:00 Temperature Pulse Rate 104 H Pulse Rate [Left P ulse Oximeter] Respiratory Rate 28 H Blood Pressure [Le ft Arm] Blood Pressure [Ri ght Arm] Pulse Oximetry 88 92 Oxygen Delivery Me thod Nasal Cannula Oxygen Flow Rate 1 Fraction of Inspir ed Oxygen 10/16/24 15:00 10/16/24 15:00 10/16/24 15:00 Temperature 98.9 F Pulse Rate Pulse Rate [Left P ulse Oximeter] 107 H 107 H Respiratory Rate 27 H 27 H 28 H Blood Pressure [Le ft Arm] 126/67 Blood Pressure [Ri ght Arm] Pulse Oximetry 92 92 Oxygen Delivery Me thod Nasal Cannula Nasal Cannula Oxygen Flow Rate 1 1 Fraction of Inspir ed Oxygen Documenting provider has reviewed patient's vital signs: yes Labs Labs: Laboratory Results - last 24 hr 10/15/24 10/16/24 21:17 08:44 VBG pH 7.422 7.358 VBG pCO2 68 H* 84 H* VBG pO2 34.7 < 30.1 VBG HCO3 44 H 47 H
--- NOTE | 2024-10-16 19:07 | PC.NURSE ---
End of shift summary: Pt has been alert & intermittently disoriented to place, time and situation. Always oriented to self. He has not been angry or aggressive with staff but he has very suspicious remarks & behaviors, not trusting all the equipment in his room & talking about spies coming in and tampering with it. When RN went in the room to hang his IV antibiotic, patient made the comment ?I gotta keep an eye on these things or you?ll try to kill me with it?. RN re-educated and reassured patient of the medications and the purpose of him receiving them. He?s been cooperative with cares all day. SBA to the BR d/t O2 tubing otherwise he has a steady gait. He does become quite SOB and hypoxic with ambulation and has a slow recovery once back to bed. PIV in right FA is SL. TELE reads ST with BBB. CO2 was up to 84 this morning after pt refusing to wear BiPAP majority of the night. He?s maintained on 1-1.5L NC today reading anywhere between 86-92% at rest. Per RT, no more than 2L NC and goal is to wear BiPAP for at least 4 hours overnight. Formation Fracturing Operator met with pt and started him on nutritional supplements BID which he has yet to drink. No BM today. Continent of urine. , Cassandra was here briefly this afternoon to visit. Pt needs reminders and re-education on utilizing his [employer].?
[2024-10-16] MEDS: ENOXAPARIN 40 MG/0.4 ML INJ SUBCUT (20:36)
[2024-10-16] MEDS: MELATONIN 3 MG TABLET PO (20:36)
[2024-10-17] VITALS (7 sets, daily range): BP systolic 124–163; BP diastolic 65–91; PULSE 92–106; RESP 20–32; TEMP 36.4–37.4; O2SAT 83–94
--- NOTE | 2024-10-17 05:36 | PC.NURSE ---
[id number] Pt somewhat tolerated Bipap on and off during the night, from approx 8044-5327 and then again from 0100 to approx 0415 at which time pt did not want to keep bipap on for remainder of night. denies N/V, intermittent cough noted. SBA to br, tolerating activity fairly well.
[2024-10-17 06:22] LABS: HCO3 VBG 45 mmol/L (21-28); PO2 VBG < 30.1 mmHG (25-47); pH VBG 7.362 (7.32-7.43)
[2024-10-17 06:30] LABS: PCO2 VBG 79 mmHG (40-50)
[2024-10-17] MEDS: IPRAT-ALBUT 0.5-2.5 MG/3 ML NEB 1 NEB IH ×3 (08:33→20:23)
[2024-10-17] MEDS: OSELTAMIVIR PHOSPHATE 75 MG CAPSULE PO ×2 (08:33→20:23)
[2024-10-17] MEDS: predniSONE 10 MG TABLET 50 MG PO (08:33)
--- NOTE | 2024-10-17 15:26 | PM.IMPN1 ---
Progress Note: A&P Assessment and plan (1) Acute on chronic respiratory failure with hypoxia and hypercapnia: Problem details: Due to COPD exacerbation plus influenza. Systemic steroids, inhaled bronchodilators, antibiotics. Cautious use of oxygen due to CO2 retention. BiPAP was being used as needed. End-tidal CO2 monitoring was also being used to avoid hypercarbia. Patient states he will not use BiPAP hereafter. Patient has end-stage COPD and meet eligibility criteria for hospice services. Will ask our social and human services assistant to visit with patient and about home hospice support possibilities. Status: Acute (2) Influenza A: Problem details: Tamiflu and monitor Status: Acute (3) Pneumonia: Problem details: Tamiflu and also treatment for community-acquired pneumonia. Status: Acute (4) Abnormal weight loss: Problem details: Patient has a BMI of 17.4 with a 4.5 kg weight loss in 10 months from 12/11/2023 to 10/14/2024. Nutritional consult. Optimize COPD treatment Status: Acute (5) Encephalopathy: Problem details: Encephalopathy manifested as acute confusion and some behavior change by his and noted during his hospital admission is now much better. This is likely metabolic encephalopathy due to hypercarbia primarily. Status: Acute (6) End stage chronic obstructive pulmonary disease: Problem details: -CO2 retainer with chronic respiratory failure with hypercapnia -history of encephalopathy associated with hypercapnia -declines additional disease directed diagnostic or interventional efforts -request comfort focus measures only with DNR DNI resuscitation status and hospice support if possible in his home -hospital social work professor will meet with patient and to discuss possible options for home hospice services Status: Acute Plan 1. Reviewed impression and recommendations with patient and , Cassandra 2. Answered their questions 3. They are agreeable with above stated plans and recommendations Time Spent With Patient Total time spent: 60 minutes Subjective Date Seen: 10/17/24 Interval history: Young Mcleod is a 73 year old male with COPD admitted to the hospital with 5 day history of illness. Patient is a poor historian but his gives details of recent illness. About 5 days ago he began having worsening shortness of breath and cough. His breathing has been getting worse and he has now been confused and it is sometimes quite agitated. He has been sleeping in a recliner because he can not lie supine. He tolerates no activities due to dyspnea. He is known to have COPD from smoking. Stop smoking recently but acknowledges occasionally taking cigarettes from his to smoke. Previously was smoking marijuana but no longer. He uses DuoNebs 4 times a day and p.r.n. albuterol rescue inhaler. He no longer has maintenance therapy for his COPD. His had influenza a couple weeks ago. She got it from there [facility]. 10/15/2024: Patient continued to have hypoxia and hypercarbia. He was placed on BiPAP overnight. He did well with this though continues to be hypoxic and hypercarbic this morning. He reports feeling better overall however. Reaffirmed that he does not want intubation. During the day today he was able to transition to oxygen at 2 L per nasal cannula for periods of time. I indicated to the patient and his that he has fairly severe lung disease and is likely a candidate for hospice if he would like to take that approach to his care. 10/16/2024: Patient had some delirium overnight. Paranoid ideation. Refusing to wear BiPAP. That has resolved this morning. He is now on nasal cannula oxygen at 1 L with O2 sat of 90% and an end-tidal CO2 in the 40s. He reports otherwise feeling fine. Hospital day 4. 10/17/2024 He tried using the BiPAP machine yesterday and during the evening with only minimal success. He states it is much too uncomfortable on claustrophobic for him. He ultimately voices that he simply cannot use the BiPAP apparatus. I review with both him and his , Cassandra, the path a physiologic basis for using the BiPAP for ventilation purposes given his CO2 retention. They expressed understanding of this. Despite this the patient states he is not willing to utilize this and prefers instead to focus on comfort focus measures only. He asks for us to direct our efforts toward discharging him home with hospice support. Answer his and his 's questions to their satisfaction. is supportive of her 's decision. Exam Narrative: Exam Narrative: Examine the patient in his hospital room. Cachectic appearance. Thin and frail. Appears comfortable and no acute distress, despite tachypnea with respiratory rate of 24 when I see him. Oxygen saturation 85% on low-flow oxygen via nasal cannula. Modestly decreased hearing. Nevertheless able to engage in meaningful dialogue in conversation. Vision is adequate. Alert and oriented x4. Friendly, articulate, cooperative. Barrel-shaped chest. Lungs with scattered rhonchi and bibasilar end inspiratory rales. Heart tones with regular rhythm, normal S1-S2. Moves all 4 extremities. Baseline tachypnea worsens with minimal exertion from 24 to 32. Oxygen saturations dropped even more with minimal exertion from 85% to 81%. Pursed lip breathing. Increase use of accessory muscles of respiration post exertion. Const: Vital Signs, click to edit/add: Vital Signs - 24 hr 10/16/24 19:00 10/16/24 22:25 10/16/24 22:25 Temperature 99.4 F Pulse Rate Pulse Rate [Left P ulse Oximeter] 102 H Respiratory Rate 26 H 26 H Blood Pressure [Ri ght Arm] 131/77 Pulse Oximetry 90 90 Oxygen Delivery Me thod Nasal Cannula Oxygen Flow Rate 1 Fraction of Inspir ed Oxygen 10/16/24 22:25 10/16/24 22:25 10/16/24 23:09 Temperature 97.1 F L Pulse Rate 101 H Pulse Rate [Left P ulse Oximeter] 97 Respiratory Rate 26 H 26 H Blood Pressure [Ri ght Arm] 120/67 Pulse Oximetry 90 90 Oxygen Delivery Me thod BiPAP BiPAP Oxygen Flow Rate Fraction of Inspir ed Oxygen 25 10/17/24 03:00 10/17/24 08:00 10/17/24 08:39 Temperature 97.5 F L Pulse Rate 92 Pulse Rate [Left P ulse Oximeter] 97 Respiratory Rate 28 H Blood Pressure [Ri ght Arm] Pulse Oximetry 92 86 L Oxygen Delivery Me thod BiPAP Oxygen Flow Rate Fraction of Inspir ed Oxygen 25 10/17/24 08:39 10/17/24 08:39 10/17/24 08:39 Temperature 99.4 F Pulse Rate Pulse Rate [Left P ulse Oximeter] 99 99 Respiratory Rate 32 H 32 H 32 H Blood Pressure [Ri ght Arm] 147/91 H Pulse Oximetry 84 L 94 Oxygen Delivery Me thod Nasal Cannula Nasal Cannula Oxygen Flow Rate 1 1 Fraction of Inspir ed Oxygen 10/17/24 10:32 10/17/24 12:16 Temperature 98.3 F Pulse Rate Pulse Rate [Left P ulse Oximeter] 98 Respiratory Rate 24 Blood Pressure [Ri ght Arm] 130/80 Pulse Oximetry 94 Oxygen Delivery Me thod Nasal Cannula Oxygen Flow Rate 1 Fraction of Inspir ed Oxygen 0.25 Labs Labs: Laboratory Results - last 24 hr 10/17/24 06:18 VBG pH 7.362 VBG pCO2 79 H* VBG pO2 < 30.1 VBG HCO3 45 H
[2024-10-17] MEDS: cefTRIAXone 1 GM in 0.9 % SODIUM CHLORIDE Mini-bag 100 ML IVPB (16:05)
[2024-10-17] MEDS: AZITHROMYCIN 250 MG TABLET 500 MG PO (16:11)
[2024-10-17] MEDS: SODIUM CHLORIDE 0.9 % (FLUSH) 10 ML SYRINGE 5 ML IVF ×2 (16:11→20:26)
--- NOTE | 2024-10-17 16:32 | PC.SOCIAL ---
Discharge planning: Pt and his are interested in hospice services in the home after talking with the provider on duty. patch worker met with pt and his and discussed hospice services and provided them with a list of local area hospice agencies. Pt and his family would like [facility]. patch worker sent the referral to [facility] at fax number #[phone]. patch worker also talked to Television Antenna Installer, Melody Bowman, with [facility] who will start working on getting the referral processed. Pt may be ready for discharge as early as tomorrow(Sunday10/18/24). Melody said that [facility] can accommodate a Sunday intake/admission and that someone from [facility] would just need to call their intake line to inform them that the pt is discharging. The main number for [facility] to call this weekend is #[phone]. patch worker will relay this information to the charge nurse on duty. Social work to follow-up as needed.
--- NOTE | 2024-10-17 18:56 | PC.NURSE ---
Nursing Care Hours: [id number] Pt this shift calm and cooperative, alert and oriented. No c/o pain. SOB with exertion, needing extra time to catch breath and stabilize sats. Tele reading NSR to sinus tach. Afebrile though pt diaphoretic post ambulation. Sp02 stable on 1L NC. BIPAP not used this shift. Tolerating regular meals. Pt seen sleeping in between cares and pt reports first time feeling rested since admission. Pt making statements about wanting to go home and live out rest of his life comfortably.
[2024-10-17] MEDS: ENOXAPARIN 40 MG/0.4 ML INJ SUBCUT (20:23)
[2024-10-18] VITALS (9 sets, daily range): BP systolic 126–150; BP diastolic 83–102; PULSE 94–104; RESP 22–28; TEMP 36.3–37.2; O2SAT 86–90
--- NOTE | 2024-10-18 07:30 | PC.NURSE ---
Pt is alert and oriented x3 with some forgetfulness. Pt denies pain, chest pain, and N/V. Pt reports SOB with exertion. Pt O2 stats drop to 70-75% when ambulating to bathroom. Pt was on 1 L O2 throughout night maintaining stats of 86-88% while at rest. Pt is up SBA, voiding, and tolerating a regular diet. ?
[2024-10-18] MEDS: OSELTAMIVIR PHOSPHATE 75 MG CAPSULE PO ×2 (08:24→21:35)
[2024-10-18] MEDS: IPRAT-ALBUT 0.5-2.5 MG/3 ML NEB 1 NEB IH ×3 (08:25→21:35)
[2024-10-18] MEDS: predniSONE 10 MG TABLET 50 MG PO (08:25)
[2024-10-18] MEDS: SODIUM CHLORIDE 0.9 % (FLUSH) 10 ML SYRINGE 5 ML IVF ×2 (08:25→21:36)
[2024-10-18] MEDS: AZITHROMYCIN 250 MG TABLET 500 MG PO (14:13)
[2024-10-18] MEDS: cefTRIAXone 1 GM in 0.9 % SODIUM CHLORIDE Mini-bag 100 ML IVPB (14:14)
--- NOTE | 2024-10-18 15:41 | P.IMPN_ITS ---
Progress Note: A&P Assessment and plan (1) Acute on chronic respiratory failure with hypoxia and hypercapnia: Problem details: Due to COPD exacerbation plus influenza. Systemic steroids, inhaled bronchodilators, antibiotics. Cautious use of oxygen due to CO2 retention. BiPAP was being used as needed. End-tidal CO2 monitoring was also being used to avoid hypercarbia. Patient states he will not use BiPAP hereafter. Patient has end-stage COPD and meet eligibility criteria for hospice services. Will ask our social media assistant to visit with patient and about home hospice support possibilities. Status: Acute (2) Influenza A: Problem details: Tamiflu and monitor Status: Acute (3) Pneumonia: Problem details: Tamiflu and also treatment for community-acquired pneumonia. Status: Acute (4) Abnormal weight loss: Problem details: Patient has a BMI of 17.4 with a 4.5 kg weight loss in 10 months from 12/11/2023 to 10/14/2024. Nutritional consult. Optimize COPD treatment Status: Acute (5) Encephalopathy: Problem details: Encephalopathy manifested as acute confusion and some behavior change by his and noted during his hospital admission is now much better. This is likely metabolic encephalopathy due to hypercarbia primarily. Status: Acute (6) End stage chronic obstructive pulmonary disease: Problem details: -CO2 retainer with chronic respiratory failure with hypercapnia -history of encephalopathy associated with hypercapnia -declines additional disease directed diagnostic or interventional efforts -request comfort focus measures only with DNR DNI resuscitation status and hospice support if possible in his home -hospital geriatric social work professor will meet with patient and to discuss possible options for home hospice services Status: Acute (7) Pulmonary cachexia due to COPD: Problem details: -malnutrition in association with advanced lung disease -10/18/2024 BMI 16.8, 48.6 kg, 170 cm tall -consider daily nutritional supplementation in addition to high-protein diet Status: Acute Plan 1. Reviewed impression with patient and his , Cassandra 2. Answered their questions are satisfaction 3. They are agreeable with above stated plans and recommendations Time Spent With Patient Total time spent: 45 minutes Subjective Date Seen: 10/18/24 Interval history: Young Mcleod is a 73 year old male with COPD admitted to the hospital with 5 day history of illness. Patient is a poor historian but his gives details of recent illness. About 5 days ago he began having worsening shortness of breath and cough. His breathing has been getting worse and he has now been confused and it is sometimes quite agitated. He has been sleeping in a recliner because he can not lie supine. He tolerates no activities due to dyspnea. He is known to have COPD from smoking. Stop smoking recently but acknowledges occasionally taking cigarettes from his to smoke. Previously was smoking marijuana but no longer. He uses DuoNebs 4 times a day and p.r.n. albuterol rescue inhaler. He no longer has maintenance therapy for his COPD. His had influenza a couple weeks ago. She got it from there [email or web address]. 10/15/2024: Patient continued to have hypoxia and hypercarbia. He was placed on BiPAP overnight. He did well with this though continues to be hypoxic and hypercarbic this morning. He reports feeling better overall however. Reaffirmed that he does not want intubation. During the day today he was able to transition to oxygen at 2 L per nasal cannula for periods of time. I indicated to the patient and his that he has fairly severe lung disease and is likely a candidate for hospice if he would like to take that approach to his care. 10/16/2024: Patient had some delirium overnight. Paranoid ideation. Refusing to wear BiPAP. That has resolved this morning. He is now on nasal cannula oxygen at 1 L with O2 sat of 90% and an end-tidal CO2 in the 40s. He reports otherwise feeling fine. Hospital day 4. 10/17/2024 He tried using the BiPAP machine yesterday and during the evening with only minimal success. He states it is much too uncomfortable on claustrophobic for him. He ultimately voices that he simply cannot use the BiPAP apparatus. I review with both him and his , Cassandra, the path a physiologic basis for using the BiPAP for ventilation purposes given his CO2 retention. They expressed understanding of this. Despite this the patient states he is not willing to utilize this and prefers instead to focus on comfort focus measures only. He asks for us to direct our efforts toward discharging him home with hospice support. Answer his and his 's questions to their satisfaction. is supportive of her 's decision. Hospital day 5. 10/18/2024 Patient is comfortable at this time. He is now willing to try the BiPAP machine at home. Our respiratory therapists spoke with him and his extensively about this. Prescription was written on his behalf for this while he is on hospice, auto BiPAP, max of 18, minimum of 14, pressure support of 10, 1 liter/minute oxygen bleed in, use when sleeping and as needed while awake. Also ordered mask, head gear, tubing, and reservoir. Patient's and hospice will be ready for him as early as a tomorrow. Our nursing staff has had discussions with both the and [facility]. Exam Narrative: Exam Narrative: I examined him in his hospital room. Appears comfortable in no acute distress. Is thin and cachectic in appearance. Weight is 48.6 kg with BMI of 16.8. Sitting upright in his hospital bed with head of bed elevated at 60?. Thin, cachectic appearance. Resting respirations of 20 to 22. Respiratory rate increases to 24-28 with minimal exertion. Oxygen saturation 86-88% on 1 L of oxygen per minute via nasal cannula. Oxygen saturations drop down to 80-82% with minimal exertion while on oxygen at 1 liter/minute. Again patient has CO2 retention and thus we are trying to minimize his exposure to oxygen while at the same time attempting to approximate his oxygen needs. Scattered rhonchi in both lung [place]. Heart tones with regular rhythm. Abdomen with active bowel sounds, soft. Extremities without edema. Const: Vital Signs, click to edit/add: Vital Signs - 24 hr 10/17/24 20:13 10/17/24 22:07 10/17/24 22:07 Temperature 99.1 F 98.5 F Pulse Rate 101 H Pulse Rate [Left P ulse Oximeter] 103 H 105 H Respiratory Rate 22 20 Blood Pressure [Ri ght Arm] 134/80 124/72 Pulse Oximetry 88 86 L Oxygen Delivery Me thod Nasal Cannula Nasal Cannula Oxygen Flow Rate 1 1 10/17/24 22:07 10/17/24 22:07 10/17/24 22:07 Temperature Pulse Rate Pulse Rate [Left P ulse Oximeter] 105 H Respiratory Rate 20 20 Blood Pressure [Ri t Arm] Pulse Oximetry 86 L 86 L Oxygen Delivery Me thod Nasal Cannula Oxygen Flow Rate 1 10/18/24 02:31 10/18/24 07:47 10/18/24 07:47 Temperature 99.0 F Pulse Rate Pulse Rate [Left P ulse Oximeter] 98 Respiratory Rate 26 H 28 H Blood Pressure [Ri ght Arm] 134/93 H Pulse Oximetry 86 L 87 L 87 L Oxygen Delivery Me thod Nasal Cannula Nasal Cannula Oxygen Flow Rate 1 1 10/18/24 07:47 10/18/24 08:15 10/18/24 11:33 Temperature 98.6 F 98.0 F Pulse Rate 100 Pulse Rate [Left P ulse Oximeter] 94 103 H Respiratory Rate 28 H 24 [facility] 150/89 H 147/83 H Pulse Oximetry 87 L 88 Oxygen Delivery Me thod Nasal Cannula Nasal Cannula Oxygen Flow Rate 1 1 10/18/24 15:30 10/18/24 15:30 10/18/24 15:30 Temperature 99.0 F Pulse Rate Pulse Rate [Left P ulse Oximeter] 103 H Respiratory Rate 24 24 Blood Pressure [facility]] 126/85 Pulse Oximetry 87 L 87 L 87 L Oxygen Delivery Me thod Nasal Cannula Nasal Cannula Oxygen Flow Rate 1 1
[2024-10-18] MEDS: ENOXAPARIN 40 MG/0.4 ML INJ SUBCUT (21:35)
[2024-10-19 04:03] VITALS: PULSE 72; RESP 24; O2SAT 93
--- NOTE | 2024-10-19 06:56 | PC.NURSE ---
Pt is alert and oriented x3 with some forgetfulness. SOB is noted at rest and with exertion. Pt?s O2 stats continues drop to 70-75% when ambulating to bathroom. Pt was on 1 L O2 throughout night maintaining stats of 86-88% while at rest. Pt slept throughout most of night. Night uneventful.
[2024-10-19 07:00] VITALS: BP 147/89; PULSE 97; RESP 24; TEMP 37.2; O2SAT 88
[2024-10-19 07:29] VITALS: PULSE 80
[2024-10-19] MEDS: predniSONE 10 MG TABLET 50 MG PO (09:13)
[2024-10-19] MEDS: SODIUM CHLORIDE 0.9 % (FLUSH) 10 ML SYRINGE 5 ML IVF (09:13)
[2024-10-19] MEDS: IPRAT-ALBUT 0.5-2.5 MG/3 ML NEB 1 NEB IH (09:13)
--- NOTE | 2024-10-19 10:55 | PC.NURSE ---
Discharge-- Pleasant, cooperative, alert and oriented patient was discharged to home via wheelchair with . Pt sent home with O2 and hospice services initiated. VSS and pt is afebrile. SPO2 maintained >85% on 1L per n.c. Telemetry showed NSR. LS diminished with scattered inspiratory and expiratory wheezes and rhonchi noted. Discharge education was provided by kwasi Jarvis RN and SL was removed with tip intact.
--- NOTE | 2024-10-19 16:22 | PM.DS1 ---
DS: Providers Provider Date Seen: 10/19/24 Date of admission: 10/14/24 12:31 Primary care physician: Young Moran MD Admitting Clinician: Servando Hdez MD Consults: 10/14/24 12:34 Consult to Respiratory Therapy [CONS] Routine Comment: Reason(s) for RT Consult:: Consult 10/14/24 18:06 Consult to Nutrition [CONS] Routine Comment: Reason for consult:: Weight Loss Attending Physician on discharge: Franko Fraser MD Date of Discharge: 10/19/24 DS: Diagnosis Discharge Diagnosis (1) Acute on chronic respiratory failure with hypoxia and hypercapnia: Status: Acute Problem details: Due to COPD exacerbation plus influenza. Systemic steroids, inhaled bronchodilators, antibiotics. Cautious use of oxygen due to CO2 retention. BiPAP was being used as needed. End-tidal CO2 monitoring was also being used to avoid hypercarbia. Patient states he will not use BiPAP hereafter. Patient has end-stage COPD and meet eligibility criteria for hospice services. Will ask our perinatal social worker to visit with patient and about home hospice support possibilities. (2) Pneumonia: Status: Acute Problem details: Tamiflu and also treatment for community-acquired pneumonia. (3) Influenza A: Status: Acute Problem details: Tamiflu and monitor (4) End stage chronic obstructive pulmonary disease: Status: Acute Problem details: -CO2 retainer with chronic respiratory failure with hypercapnia -history of encephalopathy associated with hypercapnia -Attempt to not exceed O2 supplementation greater than 2 LPM via NC to prevent and avoid cessation of respiratory drive -declines additional disease directed diagnostic or interventional efforts -request comfort focus measures only with DNR DNI resuscitation status and hospice support if possible in his home -hospital administrator social welfare will meet with patient and to discuss possible options for home hospice services (5) COPD with acute exacerbation: Status: Acute (6) Encephalopathy: Status: Acute Problem details: Encephalopathy manifested as acute confusion and some behavior change by his and noted during his hospital admission is now much better. This is likely metabolic encephalopathy due to hypercarbia primarily. (7) Pulmonary cachexia due to COPD: Status: Acute Problem details: -malnutrition in association with advanced lung disease -10/18/2024 BMI 16.8, 48.6 kg, 170 cm tall -consider daily nutritional supplementation in addition to high-protein diet (8) Tobacco use: Status: Acute (9) Hyperlipidemia: Status: Acute (10) Abnormal weight loss: Status: Acute Problem details: Patient has a BMI of 17.4 with a 4.5 kg weight loss in 10 months from 12/11/2023 to 10/14/2024. Nutritional consult. Optimize COPD treatment (11) Anxiety: Status: Acute DS: Summary Hospital Course Hospital Course: Young Mcleod is a 73 year old male with COPD admitted to the hospital with 5 day history of illness. Patient is a poor historian but his gives details of recent illness. About 5 days ago he began having worsening shortness of breath and cough. His breathing has been getting worse and he has now been confused and it is sometimes quite agitated. He has been sleeping in a recliner because he can not lie supine. He tolerates no activities due to dyspnea. He is known to have COPD from smoking. Stop smoking recently but acknowledges occasionally taking cigarettes from his to smoke. Previously was smoking marijuana but no longer. He uses DuoNebs 4 times a day and p.r.n. albuterol rescue inhaler. He no longer has maintenance therapy for his COPD. His had influenza a couple weeks ago. She got it from [employer]. 10/15/2024: Patient continued to have hypoxia and hypercarbia. He was placed on BiPAP overnight. He did well with this though continues to be hypoxic and hypercarbic this morning. He reports feeling better overall however. Reaffirmed that he does not want intubation. During the day today he was able to transition to oxygen at 2 L per nasal cannula for periods of time. I indicated to the patient and his that he has fairly severe lung disease and is likely a candidate for hospice if he would like to take that approach to his care. 10/16/2024: Patient had some delirium overnight. Paranoid ideation. Refusing to wear BiPAP. That has resolved this morning. He is now on nasal cannula oxygen at 1 L with O2 sat of 90% and an end-tidal CO2 in the 40s. He reports otherwise feeling fine. Hospital day 4. 10/17/2024 He tried using the BiPAP machine yesterday and during the evening with only minimal success. He states it is much too uncomfortable on claustrophobic for him. He ultimately voices that he simply cannot use the BiPAP apparatus. I review with both him and his , Cassandra, the path a physiologic basis for using the BiPAP for ventilation purposes given his CO2 retention. They expressed understanding of this. Despite this the patient states he is not willing to utilize this and prefers instead to focus on comfort focus measures only. He asks for us to direct our efforts toward discharging him home with hospice support. Answer his and his 's questions to their satisfaction. is supportive of her 's decision. Hospital day 5. 10/18/2024 Patient is comfortable at this time. He is now willing to try the BiPAP machine at home. Our respiratory therapists spoke with him and his extensively about this. Prescription was written on his behalf for this while he is on hospice, auto BiPAP, max of 18, minimum of 14, pressure support of 10, 1 liter/minute oxygen bleed in, use when sleeping and as needed while awake. Also ordered mask, head gear, tubing, and reservoir. Patient's and hospice will be ready for him as early as 10/19/24. Our nursing staff has had discussions with both the and [facility]. Status at Discharge Overall status at discharge: patient is back to baseline Time Spent with Patient Time attestation: Total time spent providing and/or coordinating discharge services: Time spent: Less than 30 minutes Exam Narrative: Exam Narrative: I examined him in his hospital room. Appears comfortable in no acute distress. Is thin and cachectic in appearance. Weight is 48.6 kg with BMI of 16.8. Sitting upright in his hospital bed with head of bed elevated at 60?. Thin, cachectic appearance. Resting respirations of 20 to 22. Respiratory rate increases to 24-28 with minimal exertion. Oxygen saturation 86-88% on 1 L of oxygen per minute via nasal cannula. Oxygen saturations drop down to 80-82% with minimal exertion while on oxygen at 1 liter/minute. Again patient has CO2 retention and thus we are trying to minimize his exposure to oxygen while at the same time attempting to approximate his oxygen needs. Scattered rhonchi in both lung [place]. Heart tones with regular rhythm. Abdomen with active bowel sounds, soft. Extremities without edema. Const: Vital Signs, click to edit/add: Vital Signs - 24 hr 10/18/24 19:27 10/18/24 21:50 10/18/24 21:50 Temperature 98.5 F 97.4 F L Pulse Rate Pulse Rate [Left P ulse Oximeter] 102 H 97 Respiratory Rate 22 28 H Blood Pressure [Ri ght Arm] 132/102 H 140/89 H Pulse Oximetry 89 90 90 Oxygen Delivery Me thod Nasal Cannula Nasal Cannula Oxygen Flow Rate 1 1 10/18/24 21:50 10/18/24 21:50 10/18/24 22:45 Temperature Pulse Rate 96 Pulse Rate [Left P ulse Oximeter] 97 Respiratory Rate 28 H 28 H Blood Pressure [Ri ght Arm] Pulse Oximetry 90 Oxygen Delivery Me thod Nasal Cannula Oxygen Flow Rate 1 10/19/24 04:03 10/19/24 07:00 10/19/24 07:00 Temperature 98.9 F Pulse Rate Pulse Rate [Left P ulse Oximeter] 72 97 Respiratory Rate 24 24 24 Blood Pressure [Ri ght Arm] 147/89 H Pulse Oximetry 93 88 88 Oxygen Delivery Me thod Nasal Cannula Nasal Cannula Nasal Cannula Oxygen Flow Rate 1 1 10/19/24 07:00 10/19/24 07:00 10/19/24 07:29 Temperature Pulse Rate 80 Pulse Rate [Left P ulse Oximeter] 97 Respiratory Rate 24 Blood Pressure [Ri ght Arm] Pulse Oximetry 88 Oxygen Delivery Me thod Oxygen Flow Rate DS: Data Imaging CT scan - chest: Radiologist's impression: 1. Negative for pulmonary embolism. 2. Panlobular emphysema, infiltrates in the left lower lobe and right middle lobe, scattered tiny nodules and tree-in-bud opacities. 3. Mild bronchial wall thickening as well as inspissated mucus in a number of lung bases bronchi. 4. Small left pleural effusion. Discharge Plan Discharge Disposition: Xfer Home- (Hospice) Date of Admission: 10/14/24 12:31 Attending Provider on Discharge: nida Primary Care Provider: Young Moran Condition: Improved Anticipated Discharge Date/Time: 10/19/24 10:00 Discharge Medications: New budesonide 0.5 mg/2 mL suspension for nebulization 0.5 mg inhalation BID Qty: 120 2RF ipratropium-albuterol 0.5 mg-3 mg(2.5 mg base)/3 mL Solution For Nebulization 3 ml inhalation QID Qty: 180 1RF acetaminophen 325 mg Tablet 650 mg PO Q4H PRN30 Days Qty: 100 0RF albuterol sulfate 2.5 mg /3 mL (0.083 %) Solution For Nebulization 2.5 mg NEB Q4H PRN30 Days Qty: 180 0RF Continued albuterol sulfate [Ventolin HFA] 90 mcg/actuation HFA aerosol inhaler 2 puff inhalation Q6H PRN (Reason: shortness of breath or wheezing) Qty: 8.5 12RF ipratropium-albuterol 0.5 mg-3 mg(2.5 mg base)/3 mL solution for nebulization 3 ml inhalation QID PRN (Reason: shortness of breath or wheezing) Qty: 180 11RF alprazolam 0.5 mg tablet 0.5 mg PO TID PRN (Reason: anxiety) Qty: 20 0RF Discontinued ipratropium bromide 0.02 % solution 2.5 ml inhalation QID PRN (Reason: shortness of breath or wheezing) Qty: 300 6RF Discharge Orders: Discharge Order (Routine); Ordered 10/19/24 Ordered By: Franko Fraser Additional Instructions: 1. Hospice referral for in home care and support, diagnosis of end-stage COPD (Gold group E), with patient declining additional disease directed diagnostic or interventional efforts and requesting comfort cares with DNR/DNI resuscitation efforts in event of crdiopulmonary demise. 2. Additional medications and interventions per hospice and primary personal care home administrator. 3. Home BiPap settings: Auto-BiPap, max 18, min 4, pressure support 10, 1 LPM O2 bleed-in; sig: use when sleeping and as needed. Needs mask, head gear, tubing, reservoir. Activity Level: Activity as Tolerated Discharge Diet: Regular and High Protein/High Calorie Diet Detail: Consider impregnator electrolytic capacitors consultation Follow Up Appointments: Young Moran MD [Primary Care Provider] - Forms: [employer] Info Instructions
== END 2024-10-19 10:17 | disposition hospice, home (50) | DRG 193 ==
LOC: ED 12:08 → MEDSURG 22:31
PROVIDERS: Family Medicine; Internal Medicine; Student in an Organized Health Care Education/Training Program; Admitting Provider Family Medicine; Emergency Provider Family Medicine; PCP Family Medicine; Visit Provider Family Medicine
DX: J10.00 Influenza due to other identified influenza virus with unspecified type of pneumonia (principal); G93.41 Metabolic encephalopathy; J96.21 Acute and chronic respiratory failure with hypoxia; J96.22 Acute and chronic respiratory failure with hypercapnia; J44.1 Chronic obstructive pulmonary disease with (acute) exacerbation; J44.0 Chronic obstructive pulmonary disease with (acute) lower respiratory infection; Z68.1 Body mass index [BMI] 19.9 or less, adult; E46 Unspecified protein-calorie malnutrition; J18.9 Pneumonia, unspecified organism; J10.1 Influenza due to other identified influenza virus with other respiratory manifestations; R63.4 Abnormal weight loss; E88.A Wasting disease (syndrome) due to underlying condition; F41.9 Anxiety disorder, unspecified; F17.210 Nicotine dependence, cigarettes, uncomplicated; E78.5 Hyperlipidemia, unspecified
CPT/HCPCS: 36415; 36600; 71275; 80048; 80076; 82803; 83880; 85025; 85610; 85730; 87631; 93005; 94640; 94660; 94761; 99284; 99285; 99291; G0378; A9270; J0696; J1650; J7030; J7512; Q9967